=== PATIENT | female | born 1985 | race American Indian/Alaskan Native ===

== ENCOUNTER 2018-03-02 07:14 | Emergency (ER) | payer OTHER ==
[2018-03-02 08:13] VITALS: BP 143/89
[2018-03-02] MEDS ORDERED: NORCO 5/325 PO ONE (09:54)
--- NOTE | 2018-03-02 09:57 | Emergency Department Report ---
ED ENT HPI - General Chief complaint: Dental/Oral Stated complaint: RT SIDE FACE Source: patient Mode of arrival: Ambulatory Limitations: No Limitations - History of Present Illness Initial comments: This is a 32-year-old -[place] female presents with right facial swelling and pain on awakening this morning. Patient states she also has a headache with sensitivity to light. Patient reports pain is 10 out of 10 on pain scale and worse with eating. Patient states the pain is constant throbbing sensation. Patient states she is able to eat with discomfort. She denies drooling, recent trauma, sore throat, tongue swelling, difficulty swallowing, fever, and chest pain. MD complaint: tooth pain -: This morning Location: tooth # (#32) 1 - Dental caries Severity: severe Severity scale (0 -10): 10 Quality: constant, other (throbbing) Consistency: constant Improves with: none Worsens with: eating, movement Context- Dental: history of dental caries, poor dental care Associated Symptoms: gum swelling, toothache - Related Data Previous Rx's Medication Instructions Recorded Last Taken Type Acetaminophen/Codeine [Tylenol 1 tab PO Q6H PRN #8 tab 03/02/18 Unknown Rx /Codeine # 3 tab] Clindamycin [Clindamycin CAP] 300 mg PO Q8H #21 cap 03/02/18 Unknown Rx Allergies Allergy/AdvReac Type Severity Reaction Status Date / Time aspirin Allergy Hives Verified 03/02/18 08:13 ibuprofen Allergy Hives Verified 03/02/18 08:13 ED Dental HPI - General Chief complaint: Dental/Oral Stated complaint: RT SIDE FACE Source: patient Mode of arrival: Ambulatory Limitations: No Limitations - Related Data Previous Rx's Medication Instructions Recorded Last Taken Type Acetaminophen/Codeine [Tylenol 1 tab PO Q6H PRN #8 tab 03/02/18 Unknown Rx /Codeine # 3 tab] Clindamycin [Clindamycin CAP] 300 mg PO Q8H #21 cap 03/02/18 Unknown Rx Allergies Allergy/AdvReac Type Severity Reaction Status Date / Time aspirin Allergy Hives Verified 03/02/18 08:13 ibuprofen Allergy Hives Verified 03/02/18 08:13 ED Review of Systems ROS: Stated complaint: RT SIDE FACE Other details as noted in HPI Constitutional: denies: chills, fever ENT: dental pain (#32), other (right sided facial swelling). denies: ear pain, throat pain, hearing loss, epistaxis, congestion Respiratory: denies: cough, shortness of breath, wheezing Cardiovascular: denies: chest pain, palpitations Gastrointestinal: denies: abdominal pain, nausea, diarrhea Genitourinary: denies: urgency, dysuria, discharge Neurological: headache. denies: weakness, paresthesias Psychiatric: denies: anxiety, depression ED Past Medical Hx - Past Medical History Previous Medical History?: Yes Hx Hypertension: Yes - Social History Smoking Status: Never Smoker Substance Use Type: None - Medications Home Medications: Home Medications Medication Instructions Recorded Confirmed Last Taken Type Acetaminophen/Codeine [Tylenol 1 tab PO Q6H PRN #8 tab 03/02/18 Unknown Rx /Codeine # 3 tab] Clindamycin [Clindamycin CAP] 300 mg PO Q8H #21 cap 03/02/18 Unknown Rx ED Physical Exam - General Limitations: No Limitations General appearance: alert, in no apparent distress, obese (morbidly obese) - ENT ENT exam: Present: mucous membranes moist, other (dental caries in #32, mucosal swelling, and tenderness) - Neck Neck exam: Present: normal inspection, full ROM. Absent: tenderness, meningismus, lymphadenopathy, thyromegaly - Respiratory Respiratory exam: Present: normal lung sounds bilaterally. Absent: respiratory distress - Cardiovascular Cardiovascular Exam: Present: regular rate, normal rhythm. Absent: systolic murmur, diastolic murmur, rubs, gallop - GI/Abdominal GI/Abdominal exam: Present: soft, normal bowel sounds - Neurological Exam Neurological exam: Present: alert, oriented X3 - Psychiatric Psychiatric exam: Present: normal affect, normal mood - Skin Skin exam: Present: warm, dry, intact, normal color. Absent: rash ED Course Vital Signs 03/02/18 08:10 Temperature 99.2 F Pulse Rate 74 Respiratory 18 Rate Blood Pressure 143/89 O2 Sat by Pulse 100 Oximetry ED Medical Decision Making - Medical Decision Making This is a 32-year-old female that presents with tooth ache and right side facial swelling since this morning. Patient is stable and was examined by me. Given norco once in ER. Susceptible of dental caries. Discussed plan with patient. She agreed with ER plan. Discharged home with clindamycin and Tylenol No. 3. Follow up with dentist. Critical care attestation.: If time is entered above; I have spent that time in minutes in the direct care of this critically ill patient, excluding procedure time. ED Disposition Clinical Impression: Dental caries, Toothache, Swelling of right side of face Disposition: TO HOME OR SELFCARE Is pt being admited?: No Does the pt Need Aspirin: No Condition: Stable Instructions: Dental Caries (ED), Toothache (ED) Additional Instructions: Complete all days of clindamycin as prescribed for 14 days. For which he can alcohol while taking antibiotics for 24 hours after completion. Follow up with Dentist at [facility] in 24-72 hours. Prescriptions: Acetaminophen/Codeine [Tylenol /Codeine # 3 tab] 1 tab PO Q6H PRN #8 tab PRN Reason: Pain , Severe (7-10) Clindamycin [Clindamycin CAP] 300 mg PO Q8H #21 cap Referrals: [facility] [Outside] - 3-5 Days [facility] [Outside] - 3-5 Days [facility] [Outside] - 3-5 Days [facility] [Outside] - 3-5 Days Forms: Work/School Release Form(ED) Time of Disposition: 10:04 Print Language: AZERI
== END 2018-03-02 10:29 | disposition home or self-care (01) ==
LOC: ED 07:14
DX: K02.7 Dental root caries (principal); K06.8 Other specified disorders of gingiva and edentulous alveolar ridge; I10 Essential (primary) hypertension; Z88.6 Allergy status to analgesic agent
CPT/HCPCS: 99282

== ENCOUNTER 2020-04-06 01:25 | Emergency (ER) | payer OTHER ==
[2020-04-06 02:32] VITALS: BP 180/96
[2020-04-06] MEDS ORDERED: traMADol 50 MG TAB PO ONE (08:05)
--- NOTE | 2020-04-06 10:19 | Cat Scan Report ---
CT neck wo con HISTORY: Lymphadenopathy. Questionable mass. COMPARISON: None. TECHNIQUE: CT of the neck is performed. All CT scans at this location are performed using CT dose red uction for ALARA by means of automated exposure control. FINDINGS: Skull Base: No significant abnormality. Nasopharynx, oropharynx, hypopharynx: No significant abnormality. No mass identified.. Tonsils: Tonsils appear within normal limits. Airway: Patent and without significant abnormality. Salivary glands: No significant abnormality. Small lesions in the parotid gland, most likely lymph no holger Thyroid:No significant abnormality. Lymphatics: No lymphadenopathy. Vasculature: No significant abnormality. Osseous Structures: No significant abnormality Additional findings: Numerous scattered dental caries. IMPRESSION: 1. No lymphadenopathy or significant abnormality. Signer Name: Mino Vicente MD Signed: 04/06/2020 10:14 AM Workstation Name: [id number]
--- NOTE | 2020-04-06 10:33 | Emergency Department Report ---
ED General Adult HPI - General Chief complaint: Sore Throat Stated complaint: SORE THROAT Time Seen by Provider: 04/06/20 08:04 Source: patient Mode of arrival: Ambulatory Limitations: No Limitations - History of Present Illness Initial comments: Jackelin Farfan complaining of sore throat hoarseness symptoms started last night she denies fever chills nausea vomiting she reports neck swelling on the left side. She denies any falls or traumas. Patient does have history of hypertension her blood pressure today is 180/96 . She has not taken her blood pressure medication today but does have her medications to take at home Severity scale (0 -10): 9 - Related Data Previous Rx's Medication Instructions Recorded Last Taken Type Acetaminophen/Codeine [Tylenol 1 tab PO Q6H PRN #8 tab 03/02/18 Unknown Rx /Codeine # 3 tab] Clindamycin [Clindamycin CAP] 300 mg PO Q8H #21 cap 03/02/18 Unknown Rx Amoxicillin [Trimox CAP] 500 mg PO Q8H 10 Days #30 capsule 04/06/20 Unknown Rx Allergies Allergy/AdvReac Type Severity Reaction Status Date / Time aspirin Allergy Hives Verified 03/02/18 08:13 ibuprofen Allergy Hives Verified 03/02/18 08:13 ED Review of Systems ROS: Stated complaint: SORE THROAT Other details as noted in HPI ED Past Medical Hx - Past Medical History Previous Medical History?: Yes Hx Hypertension: Yes Additional medical history: Obesity - Surgical History Past Surgical History?: No - Social History Smoking Status: Never Smoker Substance Use Type: None - Medications Home Medications: Home Medications Medication Instructions Recorded Confirmed Last Taken Type Acetaminophen/Codeine [Tylenol 1 tab PO Q6H PRN #8 tab 03/02/18 Unknown Rx /Codeine # 3 tab] Clindamycin [Clindamycin CAP] 300 mg PO Q8H #21 cap 03/02/18 Unknown Rx Amoxicillin [Trimox CAP] 500 mg PO Q8H 10 Days #30 capsule 04/06/20 Unknown Rx ED Physical Exam - General Limitations: No Limitations General appearance: alert, in no apparent distress - Head Head exam: Present: atraumatic - Eye Eye exam: Present: normal appearance - ENT ENT exam: Present: TM's normal bilaterally, other (Uvula enlarged and erythemic) - Neck Neck exam: Present: normal inspection, tenderness (left supraclavicular node tenderness), lymphadenopathy - Respiratory Respiratory exam: Present: normal lung sounds bilaterally, respiratory distress - Cardiovascular Cardiovascular Exam: Present: regular rate, normal heart sounds - GI/Abdominal GI/Abdominal exam: Present: soft, normal bowel sounds - Rectal Rectal exam: Present: deferred - Extremities Exam Extremities exam: Present: normal inspection, normal capillary refill - Back Exam Back exam: Present: normal inspection - Neurological Exam Neurological exam: Present: alert, oriented X3 - Psychiatric Psychiatric exam: Present: normal affect - Skin Skin exam: Present: warm, dry, intact, normal color ED Course Vital Signs 04/06/20 04/06/20 02:29 08:17 Temperature 98.2 F Pulse Rate 75 Respiratory 18 18 Rate Blood Pressure 180/96 O2 Sat by Pulse 99 Oximetry ED Medical Decision Making - Radiology Data Radiology results: report reviewed Ct soft tissue neck FINDINGS: Skull Base: No significant abnormality. Nasopharynx, oropharynx, hypopharynx: No significant abnormality. No mass identified.. Tonsils: Tonsils appear within normal limits. Airway: Patent and without significant abnormality. Salivary glands: No significant abnormality. Small lesions in the parotid gland, most likely lymph nodes Thyroid:No significant abnormality. Lymphatics: No lymphadenopathy. Vasculature: No significant abnormality. Osseous Structures: No significant abnormality Additional findings: Numerous scattered dental caries. IMPRESSION: 1. No lymphadenopathy or significant abnormality. - Medical Decision Making Rapid strep is negative. CT soft tissue neck negative. This is most likely uvulitis. Will treat with antibiotic and have patient follow-up with her primary care physician. Patient does have history of hypertension and have medication at home she plans to take her medication when she gets home. Critical Care Time: No Critical care attestation.: If time is entered above; I have spent that time in minutes in the direct care of this critically ill patient, excluding procedure time. ED Disposition Clinical Impression: Uvulitis Disposition: DC-01 TO HOME OR SELFCARE Is pt being admited?: No Does the pt Need Aspirin: No Condition: Stable Instructions: Pharyngitis (ED), Uvulitis (ED) Additional Instructions: Warm salt water salt water gargles at least 3 times a day. Take medications as prescribed. Follow-up with your primary care doctor in 2 to 3 days or sooner continue to take your blood pressure medication and follow-up with your primary care doctor. Return to the emergency room if you develop difficulty breathing unable to chew or swallow. Okay to take Tylenol 2 tablets every 6 hours. As needed for pain Prescriptions: Amoxicillin [Trimox CAP] 500 mg PO Q8H 10 Days #30 capsule Referrals: PRIMARY CAREMD [Primary Care Provider] - 3-5 Days DENG HORTON MD [Staff Physician] - 3-5 Days Time of Disposition: 10:34
== END 2020-04-06 11:01 | disposition home or self-care (01) ==
LOC: ED 01:25
DX: K12.2 Cellulitis and abscess of mouth (principal); I10 Essential (primary) hypertension; E66.8 Other obesity; Z79.899 Other long term (current) drug therapy; Z88.6 Allergy status to analgesic agent
CPT/HCPCS: 70490; 87116; 87430; 93005

== ENCOUNTER 2020-11-28 22:00 | Emergency (ER) | payer SELFPAY ==
[2020-11-28 22:28] VITALS: BP 157/108
[2020-11-28] MEDS ORDERED: AMOXICILLIN/K CLAV 875/125MG TAB PO ONE (23:53)
[2020-11-28] MEDS ORDERED: TETANUS,DIPH,PERTUSS(ACELL) VACCINE 0.5 ML SYRINGE IM ONE (23:53)
[2020-11-28] MEDS ORDERED: ACETAMINOPHEN W/CODEINE 300-30 MG TAB PO ONE (23:53)
--- NOTE | 2020-11-29 | Emergency Department Report ---
ED General Adult HPI - General Chief complaint: Animal Bite Stated complaint: DOG BITE ON STOMACH Time Seen by Provider: 11/28/20 23:52 Source: patient Mode of arrival: Ambulatory Limitations: No Limitations - History of Present Illness Initial comments: Patient is a 35-year-old -[place] female who presents status post dog bite 2 hours ago. Patient states she was bitten by a neighborhood dog carton catcher was present at time. Police were called from patient advised animal control will place follow-up with animal status. There is no bleeding there is no open wound. Patient states puncture wound x1 to right lower abdominal wall. Partially patient did wash with soap and water to the area - Related Data Previous Rx's Medication Instructions Recorded Last Taken Type Acetaminophen/Codeine [Tylenol 1 tab PO Q6H PRN #8 tab 03/02/18 Unknown Rx /Codeine # 3 tab] Clindamycin [Clindamycin CAP] 300 mg PO Q8H #21 cap 03/02/18 Unknown Rx Amoxicillin [Trimox CAP] 500 mg PO Q8H 10 Days #30 capsule 04/06/20 Unknown Rx Acetaminophen/Codeine [Tylenol 1 tab PO Q6H PRN #12 tab 11/29/20 Unknown Rx /Codeine # 3 tab] Amoxicillin/Potassium Clav 1 each PO BID 7 Days #14 tablet 11/29/20 Unknown Rx [Augmentin 875-125 Tablet] Mupirocin [Bactroban 2% OINT] 1 applic TP TID #1 tube 11/29/20 Unknown Rx Allergies Allergy/AdvReac Type Severity Reaction Status Date / Time aspirin Allergy Hives Verified 03/02/18 08:13 ibuprofen Allergy Hives Verified 03/02/18 08:13 ED Review of Systems ROS: Stated complaint: DOG BITE ON STOMACH Other details as noted in HPI Constitutional: denies: chills, fever Eyes: denies: eye pain, eye discharge, vision change ENT: denies: ear pain, throat pain Respiratory: denies: cough, shortness of breath, wheezing Cardiovascular: denies: chest pain, palpitations Endocrine: no symptoms reported Gastrointestinal: denies: abdominal pain, nausea, diarrhea Genitourinary: denies: urgency, dysuria, discharge Musculoskeletal: denies: back pain, joint swelling, arthralgia Skin: other (puncture wound and abrasion R lower abd wall ) Neurological: denies: headache, weakness, paresthesias Psychiatric: denies: anxiety, depression Hematological/Lymphatic: denies: easy bleeding, easy bruising ED Past Medical Hx - Past Medical History Hx Hypertension: Yes Additional medical history: Obesity - Social History Smoking Status: Never Smoker - Medications Home Medications: Home Medications Medication Instructions Recorded Confirmed Last Taken Type Acetaminophen/Codeine [Tylenol 1 tab PO Q6H PRN #8 tab 03/02/18 Unknown Rx /Codeine # 3 tab] Clindamycin [Clindamycin CAP] 300 mg PO Q8H #21 cap 03/02/18 Unknown Rx Amoxicillin [Trimox CAP] 500 mg PO Q8H 10 Days #30 capsule 04/06/20 Unknown Rx Acetaminophen/Codeine [Tylenol 1 tab PO Q6H PRN #12 tab 11/29/20 Unknown Rx /Codeine # 3 tab] Amoxicillin/Potassium Clav 1 each PO BID 7 Days #14 tablet 11/29/20 Unknown Rx [Augmentin 875-125 Tablet] Mupirocin [Bactroban 2% OINT] 1 applic TP TID #1 tube 11/29/20 Unknown Rx ED Physical Exam - General Limitations: No Limitations General appearance: alert, in no apparent distress - Head Head exam: Present: atraumatic, normocephalic - Eye Eye exam: Present: normal appearance - ENT ENT exam: Present: mucous membranes moist - Neck Neck exam: Present: normal inspection - Respiratory Respiratory exam: Present: normal lung sounds bilaterally. Absent: respiratory distress - Cardiovascular Cardiovascular Exam: Present: regular rate, normal rhythm. Absent: systolic murmur, diastolic murmur, rubs, gallop - GI/Abdominal GI/Abdominal exam: Present: soft, tenderness (pain an puncture site ), normal bowel sounds. Absent: distended, guarding, rebound, rigid, bruit, hernia - Expanded GI/Abdominal Exam Expanded GI/Abdominal exam: Absent: psoas sign, obturator sign, heel tap sign, ascites - Rectal Rectal exam: Present: deferred - Extremities Exam Extremities exam: Present: normal inspection, full ROM. Absent: tenderness - Back Exam Back exam: Present: normal inspection, full ROM. Absent: tenderness - Neurological Exam Neurological exam: Present: alert, oriented X3, normal gait - Psychiatric Psychiatric exam: Present: normal affect, normal mood - Skin Skin exam: Present: warm, dry, intact, erythema (right lateral abd pain puncture wound superficial , mild erythema bruising, ), abrasion. Absent: rash ED Course Vital Signs 11/28/20 22:26 Temperature 98.1 F Pulse Rate 86 Respiratory 18 Rate Blood Pressure 157/108 O2 Sat by Pulse 98 Oximetry ED Medical Decision Making - Medical Decision Making Animal control called will follow up with patient. this is a superficial puncture/abrasion , plan: augment, bostrix, wash with soap and water daily. pt verbalized agreement and understanding of same. Critical care attestation.: If time is entered above; I have spent that time in minutes in the direct care of this critically ill patient, excluding procedure time. ED Disposition Clinical Impression: Animal bite of abdomen Qualifiers: Encounter type: initial encounter Qualified Code(s): S31.159A - Open bite of abdominal wall, unspecified quadrant without penetration into peritoneal cavity, initial encounter Disposition: TO HOME OR SELFCARE Is pt being admited?: No Does the pt Need Aspirin: No Condition: Stable Instructions: Animal Bite, Adult Additional Instructions: Take medications as prescribed. Wash sites with soap and water daily. Follow- up with primary care doctor in 2 to 3 days. Return to emergency should symptoms worsen. Prescriptions: Amoxicillin/Potassium Clav [Augmentin 875-125 Tablet] 1 each PO BID 7 Days #14 tablet Mupirocin [Bactroban 2% OINT] 1 applic TP TID #1 tube Acetaminophen/Codeine [Tylenol /Codeine # 3 tab] 1 tab PO Q6H PRN #12 tab PRN Reason: pain Referrals: BUNNY BENOIT MD [Referring] - 3-5 Days Forms: Work/School Release Form(ED) Time of Disposition: 00:13
== END 2020-11-29 00:30 | disposition home or self-care (01) ==
LOC: ED 22:00
DX: S31.159A Open bite of abdominal wall, unspecified quadrant without penetration into peritoneal cavity, initial encounter (principal); I10 Essential (primary) hypertension; E66.9 Obesity, unspecified; Z88.2 Allergy status to sulfonamides; Z88.6 Allergy status to analgesic agent; Z79.899 Other long term (current) drug therapy; W54.0XXA Bitten by dog, initial encounter; Y93.89 Activity, other specified; Y92.89 Other specified places as the place of occurrence of the external cause; Y99.8 Other external cause status
CPT/HCPCS: 90471; 90715; 99282

== ENCOUNTER 2020-12-19 09:33 | Emergency (ER) | payer SELFPAY ==
[2020-12-19 09:39] VITALS: BP 178/106
--- NOTE | 2020-12-19 10:57 | Emergency Department Report ---
ED ENT HPI - General Chief complaint: Sore Throat Stated complaint: BURNING THROAT Time Seen by Provider: 12/19/20 10:05 Source: patient Mode of arrival: Ambulatory Limitations: No Limitations - History of Present Illness Initial comments: Patient is a 35-year-old female presents emergency room complaints of a sore throat that began a few days ago. She has associated dry cough. She states that she has discomfort with swallowing and reports that her throat feels like it is on fire. She states that her voice is hoarse. She is able to tolerate p.o. intake. She denies any fever, nausea, vomiting, diarrhea, shortness of breath, ear pain, rhinorrhea. She denies any known sick contacts or recent travel. Past medical history of hypertension. Allergy to aspirin and ibuprofen. - Related Data Previous Rx's Medication Instructions Recorded Last Taken Type Acetaminophen/Codeine [Tylenol 1 tab PO Q6H PRN #8 tab 03/02/18 Unknown Rx /Codeine # 3 tab] Clindamycin [Clindamycin CAP] 300 mg PO Q8H #21 cap 03/02/18 Unknown Rx Amoxicillin [Trimox CAP] 500 mg PO Q8H 10 Days #30 capsule 04/06/20 Unknown Rx Acetaminophen/Codeine [Tylenol 1 tab PO Q6H PRN #12 tab 11/29/20 Unknown Rx /Codeine # 3 tab] Amoxicillin/Potassium Clav 1 each PO BID 7 Days #14 tablet 11/29/20 Unknown Rx [Augmentin 875-125 Tablet] Mupirocin [Bactroban 2% OINT] 1 applic TP TID #1 tube 11/29/20 Unknown Rx Nystas/Diphen/Xyl Visc/Mylanta 30 ml MM Q4H PRN #300 ml 12/19/20 Unknown Rx [Magic Mouthwash] Prednisone [predniSONE 10 mg 10 mg PO .TAPER #1 tab.ds.pk 12/19/20 Unknown Rx (6-Day Pack, 21 Tabs)] Allergies Allergy/AdvReac Type Severity Reaction Status Date / Time aspirin Allergy Hives Verified 12/19/20 09:36 ibuprofen Allergy Hives Verified 12/19/20 09:36 ED Dental HPI - General Chief complaint: Sore Throat Stated complaint: BURNING THROAT Time Seen by Provider: 12/19/20 10:05 Source: patient Mode of arrival: Ambulatory Limitations: No Limitations - Related Data Previous Rx's Medication Instructions Recorded Last Taken Type Acetaminophen/Codeine [Tylenol 1 tab PO Q6H PRN #8 tab 03/02/18 Unknown Rx /Codeine # 3 tab] Clindamycin [Clindamycin CAP] 300 mg PO Q8H #21 cap 03/02/18 Unknown Rx Amoxicillin [Trimox CAP] 500 mg PO Q8H 10 Days #30 capsule 04/06/20 Unknown Rx Acetaminophen/Codeine [Tylenol 1 tab PO Q6H PRN #12 tab 11/29/20 Unknown Rx /Codeine # 3 tab] Amoxicillin/Potassium Clav 1 each PO BID 7 Days #14 tablet 11/29/20 Unknown Rx [Augmentin 875-125 Tablet] Mupirocin [Bactroban 2% OINT] 1 applic TP TID #1 tube 11/29/20 Unknown Rx Nystas/Diphen/Xyl Visc/Mylanta 30 ml MM Q4H PRN #300 ml 12/19/20 Unknown Rx [Magic Mouthwash] Prednisone [predniSONE 10 mg 10 mg PO .TAPER #1 tab.ds.pk 12/19/20 Unknown Rx (6-Day Pack, 21 Tabs)] Allergies Allergy/AdvReac Type Severity Reaction Status Date / Time aspirin Allergy Hives Verified 12/19/20 09:36 ibuprofen Allergy Hives Verified 12/19/20 09:36 ED Review of Systems ROS: Stated complaint: BURNING THROAT Other details as noted in HPI Comment: All other systems reviewed and negative ED Past Medical Hx - Past Medical History Hx Hypertension: Yes Additional medical history: Obesity - Surgical History Past Surgical History?: No - Social History Smoking Status: Never Smoker Substance Use Type: Alcohol - Medications Home Medications: Home Medications Medication Instructions Recorded Confirmed Last Taken Type Acetaminophen/Codeine [Tylenol 1 tab PO Q6H PRN #8 tab 03/02/18 Unknown Rx /Codeine # 3 tab] Clindamycin [Clindamycin CAP] 300 mg PO Q8H #21 cap 03/02/18 Unknown Rx Amoxicillin [Trimox CAP] 500 mg PO Q8H 10 Days #30 capsule 04/06/20 Unknown Rx Acetaminophen/Codeine [Tylenol 1 tab PO Q6H PRN #12 tab 11/29/20 Unknown Rx /Codeine # 3 tab] Amoxicillin/Potassium Clav 1 each PO BID 7 Days #14 tablet 11/29/20 Unknown Rx [Augmentin 875-125 Tablet] Mupirocin [Bactroban 2% OINT] 1 applic TP TID #1 tube 11/29/20 Unknown Rx Nystas/Diphen/Xyl Visc/Mylanta 30 ml MM Q4H PRN #300 ml 12/19/20 Unknown Rx [Magic Mouthwash] Prednisone [predniSONE 10 mg 10 mg PO .TAPER #1 tab.ds.pk 12/19/20 Unknown Rx (6-Day Pack, 21 Tabs)] ED Physical Exam - General Limitations: No Limitations General appearance: alert, in no apparent distress - Head Head exam: Present: atraumatic, normocephalic - Eye Eye exam: Present: normal appearance - ENT ENT exam: Present: normal orophraynx, mucous membranes moist, TM's normal bilaterally, normal external ear exam, other (no tonsillar hypertrophy or exudates, no posterior oropharynx erythema, uvula is midline, no uvular edema or deviation, no trismus, no tongue elevation, no submandibular edema, voice is hoarse but not muffled) - Respiratory Respiratory exam: Present: normal lung sounds bilaterally. Absent: respiratory distress, wheezes, rales, rhonchi, stridor, chest wall tenderness, accessory muscle use, decreased breath sounds, prolonged expiratory - Cardiovascular Cardiovascular Exam: Present: regular rate, normal rhythm, normal heart sounds. Absent: systolic murmur, diastolic murmur, rubs, gallop - Neurological Exam Neurological exam: Present: alert, oriented X3 - Psychiatric Psychiatric exam: Present: normal affect, normal mood - Skin Skin exam: Present: warm, dry, intact ED Course Vital Signs 12/19/20 12/19/20 09:37 11:31 Temperature 98.9 F Pulse Rate 68 78 Respiratory 20 16 Rate Blood Pressure 178/106 O2 Sat by Pulse 99 100 Oximetry ED Medical Decision Making - Medical Decision Making Patient is a 35-year-old female presents emergency room complaints of a sore throat that began a few days ago. She has associated dry cough. She states that she has discomfort with swallowing and reports that her throat feels like it is on fire. She states that her voice is hoarse. She is able to tolerate p.o. intake. She denies any fever, nausea, vomiting, diarrhea, shortness of breath, ear pain, rhinorrhea. She denies any known sick contacts or recent travel. Past medical history of hypertension. Allergy to aspirin and ibuprofen. Vitals with elevated blood pressure, patient has history of chronic hypertension, discussed lifestyle modifications and primary care follow-up. On exam: no tonsillar hypertrophy or exudates, no posterior oropharynx erythema, uvula is midline, no uvular edema or deviation, no trismus, no tongue elevation, no submandibular edema, voice is hoarse but not muffled. Symptoms and examination appears consistent with laryngitis. given prescription for prednisone and Magic mouthwash. Advised patient Please use medication as prescribed. Increase your water intake. Gargle with warm salt water 3 times a day. Eat warm soup broth and drink warm tea. May use throat lozenges. Rest your voice. Follow-up with your primary care doctor for reexamination. Return to emergency room for any new or worsening symptoms. Critical care attestation.: If time is entered above; I have spent that time in minutes in the direct care of this critically ill patient, excluding procedure time. ED Disposition Clinical Impression: Laryngitis Disposition: - TO HOME OR SELFCARE Is pt being admited?: No Does the pt Need Aspirin: No Condition: Stable Instructions: Laryngitis Additional Instructions: Please use medication as prescribed. Increase your water intake. Gargle with warm salt water 3 times a day. Eat warm soup broth and drink warm tea. May use throat lozenges. Rest your voice. Follow-up with your primary care doctor for reexamination. Return to emergency room for any new or worsening symptoms. Prescriptions: Nystas/Diphen/Xyl Visc/Mylanta [Magic Mouthwash] 30 ml MM Q4H PRN #300 ml PRN Reason: sore throat Prednisone [predniSONE 10 mg (6-Day Pack, 21 Tabs)] 10 mg PO .TAPER #1 tab.ds.pk Referrals: DENG HORTON MD [Staff Physician] - 3-5 Days [facility] [Provider Group] - 3-5 Days Forms: Work/School Release Form(ED) Time of Disposition: 10:55 Print Language: DIVEHI
== END 2020-12-19 11:31 | disposition home or self-care (01) ==
LOC: ED 09:33
DX: J04.0 Acute laryngitis (principal); E66.9 Obesity, unspecified; I10 Essential (primary) hypertension; Z68.45 Body mass index [BMI] 70 or greater, adult; Z79.899 Other long term (current) drug therapy; Z88.8 Allergy status to other drugs, medicaments and biological substances
CPT/HCPCS: 99282